=== PATIENT | female | born 1980 | race American Indian/Alaskan Native ===

== ENCOUNTER 2018-07-01 18:59 | Emergency (ER) | payer OTHER, MEDICAID ==
[2018-07-01] MEDS ORDERED: TYLENOL PO ONE (20:15)
[2018-07-01 22:14] LABS: HCG Qualitative,Urine Negative (Negative)
--- NOTE | 2018-07-02 | XRay Report ---
FINAL REPORT EXAM: XR SPINE LUMBOSACRAL 2-3V HISTORY: lower back pain TECHNIQUE: Frontal and lateral views lumbar spine Comparison: None FINDINGS: Bony alignment is normal. The vertebral heights and disc spaces appear to be maintained. There is no evidence of fracture or subluxation. The paraspinous soft tissues are unremarkable. IMPRESSION: 1. No plain film evidence of bony or soft tissue abnormality. Lumbar spine fractures can be missed with plain film imaging. If there is a clinical concern for fracture, CT imaging would be helpful.
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
[2018-07-02 01:45] VITALS: BP 123/87
== END 2018-07-02 01:45 | disposition home or self-care (01) ==
LOC: ED 18:59
DX: S39.012A Strain of muscle, fascia and tendon of lower back, initial encounter (principal); Z90.49 Acquired absence of other specified parts of digestive tract; V43.52XA Car driver injured in collision with other type car in traffic accident, initial encounter; Y93.89 Activity, other specified; Y92.488 Other paved roadways as the place of occurrence of the external cause; Y99.8 Other external cause status
CPT/HCPCS: 72100; 81025; 99284

== ENCOUNTER 2020-08-02 23:46 | Emergency (ER) | payer SELFPAY ==
[2020-08-03] MEDS ORDERED: methylPREDNISolone Sod Succinate 125 MG/2 ML INJ IV ONE (00:18)
[2020-08-03] MEDS ORDERED: FAMOTIDINE 20 MG/2 ML INJ IV ONE (00:18)
--- NOTE | 2020-08-03 00:18 | Emergency Department Report ---
ED Allergic Reaction HPI - General Chief complaint: Allergic Reaction Stated complaint: THROAT CLOSE/CHEST TIGHT Time Seen by Provider: 08/03/20 00:15 Source: patient Mode of arrival: Ambulatory Limitations: No Limitations - History of Present Illness Initial Comments: Patient is a 39-year-old female that presents emergency room with complaints of allergic reaction, hives, rash, itching, chest tightness and throat swelling. Patient is talking without shortness of breath. Patient not having any difficulties breathing. Patient states she took Benadryl which has improved her symptoms. Patient states the chest tightness has almost resolved. Patient denies pain at this time. Patient denies difficulty breathing. Patient denies nausea vomiting. Patient denies fever and chills. Patient states she is currently taking amoxicillin for a dental abscess. Patient that she has an appointment tomorrow with her dentist to have the tooth pulled. Patient denies recent travel. Patient denies recent international travel. Patient denies exposure to the novel coronavirus. Patient denies sick contacts. Patient denies fever and chills. Patient denies cough. Patient denies diarrhea. Patient denies coming in contact with anybody with symptoms of the novel coronavirus. MD Complaint: allergic reaction, hives -: Sudden Exposure: medication Symptoms: rash, itching, difficulty swallowing. denies: facial swelling, lip swelling, difficulty breathing, orolingual swelling, hoarseness, syncopy, dizziness, nausea, vomiting Severity: severe Treatment Prior to Arrival: benadryl Previous Allergy History: none - Related Data Previous Rx's Medication Instructions Recorded Last Taken Type Cyclobenzaprine [Flexeril] 10 mg PO BID PRN #20 tablet 07/02/18 Unknown Rx Menthol/Camphor [[place] 1 applicatio TP TID PRN #1 tube 07/02/18 Unknown Rx Ointment] Naproxen 500 mg PO BID PRN #30 tablet 07/02/18 Unknown Rx methylPREDNISolone [Medrol 4MG 4 mg PO DAILY 6 Days #1 tab.ds.pk 08/03/20 Unknown Rx DOSEPAK (21 tabs)] Allergies Allergy/AdvReac Type Severity Reaction Status Date / Time No Known Allergies Allergy Unverified 07/01/18 20:13 ED Review of Systems ROS: Stated complaint: THROAT CLOSE/CHEST TIGHT Other details as noted in HPI Constitutional: denies: chills, fever Eyes: denies: eye pain, eye discharge, vision change ENT: as per HPI. denies: ear pain Respiratory: denies: cough, shortness of breath, wheezing Cardiovascular: denies: chest pain, palpitations Endocrine: no symptoms reported Gastrointestinal: denies: abdominal pain, nausea, diarrhea Genitourinary: denies: urgency, dysuria, discharge Musculoskeletal: denies: back pain, joint swelling, arthralgia Skin: as per HPI, rash, pruritus. denies: lesions Neurological: denies: headache, weakness, paresthesias Psychiatric: denies: anxiety, depression Hematological/Lymphatic: denies: easy bleeding, easy bruising ED Past Medical Hx - Past Medical History Previous Medical History?: No - Surgical History Past Surgical History?: Yes Hx Appendectomy: Yes Additional Surgical History: D&C. - Family History Family history: no significant - Social History Smoking Status: Never Smoker Substance Use Type: None - Medications Home Medications: Home Medications Medication Instructions Recorded Confirmed Last Taken Type Cyclobenzaprine [Flexeril] 10 mg PO BID PRN #20 tablet 07/02/18 Unknown Rx Menthol/Camphor [[place] 1 applicatio TP TID PRN #1 tube 07/02/18 Unknown Rx Ointment] Naproxen 500 mg PO BID PRN #30 tablet 07/02/18 Unknown Rx methylPREDNISolone [Medrol 4MG 4 mg PO DAILY 6 Days #1 tab.ds.pk 08/03/20 Unknown Rx DOSEPAK (21 tabs)] ED Physical Exam - General Limitations: No Limitations General appearance: alert, in no apparent distress - Head Head exam: Present: atraumatic, normocephalic - Eye Eye exam: Present: normal appearance - ENT ENT exam: Present: mucous membranes moist - Neck Neck exam: Present: normal inspection. Absent: tenderness - Respiratory Respiratory exam: Present: normal lung sounds bilaterally. Absent: respiratory distress, wheezes, rales, rhonchi, stridor - Cardiovascular Cardiovascular Exam: Present: regular rate, normal rhythm. Absent: systolic murmur, diastolic murmur, rubs, gallop - GI/Abdominal GI/Abdominal exam: Present: soft, normal bowel sounds - Extremities Exam Extremities exam: Present: normal inspection - Back Exam Back exam: Present: normal inspection - Neurological Exam Neurological exam: Present: alert, oriented X3 - Psychiatric Psychiatric exam: Present: normal affect, normal mood - Skin Skin exam: Present: warm, dry, intact, rash, urticaria ED Course Vital Signs 08/03/20 00:00 Temperature 98.3 F Pulse Rate 100 H Respiratory 18 Rate Blood Pressure 129/86 O2 Sat by Pulse 100 Oximetry - Reevaluation(s) Reevaluation #1: Patient states she is feeling better. Patient's rash is improved. I discussed all results and clinical findings with patient. I discussed plan of care with patient. Patient agrees with plan of care. Patient is stable for discharge. Patient will be discharged home. Patient given discharge instructions. Patient voiced understanding of discharge instructions. 08/03/20 01:43 ED Medical Decision Making - Medical Decision Making Patient is a 39-year-old female who presents emergency room with complaints of allergic reaction, throat swelling, rash, hives. Patient currently on amoxicillin for a dental abscess. Patient has appointment tomorrow with her dentist. Patient given steroids, Pepcid and her symptoms improved. Patient instructed to stop amoxicillin. Patient's antibiotic management will be done by her dentist tomorrow. Patient given a Solu-Medrol Dosepak. Patient does not require further emergency medical services. Patient stable for discharge. Patient given discharge directions. - Differential Diagnosis Allergic reaction, hives, amoxicillin rash. Critical care attestation.: If time is entered above; I have spent that time in minutes in the direct care of this critically ill patient, excluding procedure time. ED Disposition Clinical Impression: Rash, Urticaria Allergic reaction caused by a drug Qualifiers: Encounter type: initial encounter Qualified Code(s): T78.40XA - Allergy, unspecified, initial encounter Disposition: DC-01 TO HOME OR SELFCARE Is pt being admited?: No Does the pt Need Aspirin: No Condition: Stable Instructions: Allergies, Adult, [id number], Allergies, Adult, Rash, Adult, [id number], Hives, [id number] Additional Instructions: Patient to follow-up with primary care in 2 to 3 days. 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 Patient to rest. Patient to increase water. Patient to avoid strenuous exercise or heavy lifting until cleared by primary care. Patient to avoid amoxicillin. Patient to add amoxicillin to her allergy list. Patient to take meds as directed. Patient to return to the ER if condition worsens, changes or new symptoms arise. Prescriptions: methylPREDNISolone [Medrol 4MG DOSEPAK (21 tabs)] 4 mg PO DAILY 6 Days #1 tab.ds.pk Referrals: ARACELI SCHMITT MD [Referring] - 2-3 Days Time of Disposition: 01:42
[2020-08-03 02:12] VITALS: BP 114/77
== END 2020-08-03 02:14 | disposition home or self-care (01) ==
LOC: ED 23:46
DX: L50.9 Urticaria, unspecified (principal); Z90.49 Acquired absence of other specified parts of digestive tract; Z79.899 Other long term (current) drug therapy; T50.905A Adverse effect of unspecified drugs, medicaments and biological substances, initial encounter; Y92.89 Other specified places as the place of occurrence of the external cause
CPT/HCPCS: 96374; 96375; 99282; J2930

== ENCOUNTER 2021-04-13 19:58 | Emergency (ER) | payer OTHER, BC ==
[2021-04-13 21:58] VITALS: BP 115/82
== END 2021-04-14 01:20 ==
LOC: ED 19:58
DX: Z04.1 Encounter for examination and observation following transport accident (principal); Z53.21 Procedure and treatment not carried out due to patient leaving prior to being seen by health care provider